=== PATIENT | female | born 1960 | race Caucasian/White ===

== ENCOUNTER 2020-12-09 19:17 | Inpatient (IN) | payer MEDICARE, OTHER ==
[~2020-12-09] VITALS: Ht 167.1 cm; Wt 123.2 kg
[2020-12-09 22:03] VITALS: BP 133/85
[2020-12-09] MEDS ORDERED: PLEASE ENTER HEIGHT AND WEIGHT MC SCH (22:30)
[2020-12-09] MEDS ORDERED: NITROGLYCERIN 0.4 MG BOTTLE (25 TABS) SL PRN (22:30)
[2020-12-09] MEDS ORDERED: PLEASE ENTER ALLERGIES MC SCH (22:30)
[2020-12-09 22:53] LABS: BASOPHILS % (AUTO) 1 % (0-1); EOSINOPHILS % (AUTO) 1 % (1-7); LYMPHOCYTES % (AUTO) 23 % (22-44); MEAN CORPUSCULAR HEMOGLOBIN 28.9 pg (27.0-34.8); MEAN CORPUSCULAR HGB CONC 32.6 g/dL (32.4-35.8); MEAN PLATELET VOLUME 7.6 fL (7.4-10.4); MONOCYTES % (AUTO) 9 % (2-9); NEUTROPHILS % (AUTO) 66 % (42-75); PLATELET COUNT 269 x10^3/uL (130-400); RED BLOOD COUNT 3.27 x10^6/uL (3.82-5.3); RED CELL DISTRIBUTION WIDTH 16.4 % (9.6-15.2)
[2020-12-09 23:06] LABS: ALANINE AMINOTRANSFERASE 20 U/L (12-78); ALBUMIN 3.7 g/dL (3.4-5.0); ANION GAP 7 mmol/L (5-15); CALCIUM 8.1 mg/dL (8.5-10.1); CHLORIDE 96 mmol/L (98-107); CREATININE 0.87 mg/dL (0.55-1.02)
[2020-12-09 23:08] LABS: ALKALINE PHOSPHATASE 97 U/L (45-117); BILIRUBIN,TOTAL 0.6 mg/dL (0.2-1.0); TOTAL PROTEIN 6.6 g/dL (6.4-8.2)
[2020-12-10 00:06] VITALS: BP 125/79
[2020-12-10] MEDS ORDERED: PLEASE ENTER HEIGHT MC SCH (00:42)
[2020-12-10] MEDS ORDERED: TRAZ150T62 PO (01:22)
[2020-12-10] MEDS ORDERED: OXYC5TAB98 PO (01:22)
[2020-12-10] MEDS ORDERED: LOSA50TA14 PO (01:22)
[2020-12-10] MEDS ORDERED: OMEP20CA20 PO (01:22)
[2020-12-10] MEDS ORDERED: AMIT150T PO (01:22)
[2020-12-10] MEDS ORDERED: OXYC30TA3 PO (01:22)
[2020-12-10] MEDS ORDERED: LORazepam 0.5MG TABLET ONE (01:58)
[2020-12-10 02:00] VITALS: BP 124/78
[2020-12-10] MEDS ORDERED: LORazepam 0.5MG TABLET PO ONE (02:00)
[2020-12-10] MEDS: OXYcodone IR 5MG TABLET PO PRN ×6 (02:03→23:29)
[2020-12-10] MEDS: ACETAMINOPHEN 650 MG/20.3 ML UDC PO PRN ×2 (02:33→11:19)
[2020-12-10 06:16] LABS: BASOPHILS % (AUTO) 1 % (0-1); EOSINOPHILS % (AUTO) 1 % (1-7); LYMPHOCYTES % (AUTO) 28 % (22-44); MEAN CORPUSCULAR HEMOGLOBIN 28.6 pg (27.0-34.8); MEAN CORPUSCULAR HGB CONC 32.1 g/dL (32.4-35.8); MEAN PLATELET VOLUME 7.9 fL (7.4-10.4); MONOCYTES % (AUTO) 8 % (2-9); NEUTROPHILS % (AUTO) 63 % (42-75); PLATELET COUNT 260 x10^3/uL (130-400); RED BLOOD COUNT 3.27 x10^6/uL (3.82-5.3); RED CELL DISTRIBUTION WIDTH 16.2 % (9.6-15.2)
[2020-12-10 06:20] LABS: CHLORIDE 99 mmol/L (98-107)
[2020-12-10 06:25] LABS: ANION GAP 6 mmol/L (5-15); CALCIUM 8.5 mg/dL (8.5-10.1)
[2020-12-10 06:39] VITALS: BP 128/78
[2020-12-10] MEDS: ASPIRIN 81 MG TABLET EC PO SCH (06:41)
[2020-12-10 07:07] VITALS: BP 135/81
[2020-12-10] MEDS: LOSARTAN 50MG TABLET PO SCH (08:39)
[2020-12-10] MEDS: OMEPRAZOLE 20 MG CAPSULE.DR PO SCH (08:39)
[2020-12-10] MEDS: FUROSEMIDE 20 MG/2 ML IVPush SCH ×2 (08:39→20:10)
[2020-12-10] MEDS: FAMOTIDINE 20 MG TABLET PO SCH (08:39)
[2020-12-10] MEDS: ENOXAPARIN 40 MG/0.4 ML SQ SCH (08:40)
[2020-12-10] MEDS: FLUTICASONE/VILANTEROL 100-25MCG/INH INH SCH (09:40)
[2020-12-10] MEDS ORDERED: FUROSEMIDE 40 MG/4 ML IV ONE (12:00)
[2020-12-10] MEDS ORDERED: POTASSIUM CHLORIDE 20 MEQ TAB.ER.PRT PO ONE ×2 (12:00→15:30)
[2020-12-10 12:30] VITALS: BP 118/74
[2020-12-10] MEDS: SENNA/DOCUSATE TABLET PO SCH (15:51)
[2020-12-10] MEDS: TRAZODONE 150MG TABLET PO SCH (19:18)
[2020-12-10 19:27] VITALS: BP 113/68
[2020-12-10] MEDS: ALBUTEROL HFA 90 MCG/SPRAY INH PRN (19:41)
[2020-12-10] MEDS: AMITRIPTYLINE 75 MG TABLET PO SCH (20:11)
[2020-12-10] MEDS ORDERED: TRAZODONE 150MG TABLET PO SCH (21:00)
[2020-12-11 01:58] VITALS: BP 124/65
[2020-12-11] MEDS: ALBUTEROL HFA 90 MCG/SPRAY INH PRN ×2 (03:20→18:07)
[2020-12-11] MEDS: ASPIRIN 81 MG TABLET EC PO SCH (04:49)
[2020-12-11] MEDS: OXYcodone IR 5MG TABLET PO PRN ×4 (04:50→20:48)
[2020-12-11 05:10] LABS: BASOPHILS % (AUTO) 1 % (0-1); EOSINOPHILS % (AUTO) 2 % (1-7); LYMPHOCYTES % (AUTO) 16 % (22-44); MEAN CORPUSCULAR HEMOGLOBIN 28.9 pg (27.0-34.8); MEAN CORPUSCULAR HGB CONC 32.6 g/dL (32.4-35.8); MEAN PLATELET VOLUME 8.2 fL (7.4-10.4); MONOCYTES % (AUTO) 10 % (2-9); NEUTROPHILS % (AUTO) 72 % (42-75); PLATELET COUNT 319 x10^3/uL (130-400); RED BLOOD COUNT 3.26 x10^6/uL (3.82-5.3); RED CELL DISTRIBUTION WIDTH 16.1 % (9.6-15.2)
[2020-12-11 05:23] LABS: ANION GAP 4 mmol/L (5-15); CALCIUM 8.3 mg/dL (8.5-10.1); CHLORIDE 96 mmol/L (98-107)
[2020-12-11 05:25] LABS: CREATININE 0.78 mg/dL (0.55-1.02)
[2020-12-11 07:46] VITALS: BP 121/64
[2020-12-11] MEDS: LOSARTAN 50MG TABLET PO SCH ×2 (08:17→08:43)
[2020-12-11] MEDS: SENNA/DOCUSATE TABLET PO SCH (08:43)
[2020-12-11] MEDS: FAMOTIDINE 20 MG TABLET PO SCH ×2 (08:43→20:47)
[2020-12-11] MEDS: FUROSEMIDE 20 MG/2 ML IVPush SCH (08:44)
[2020-12-11] MEDS: OMEPRAZOLE 20 MG CAPSULE.DR PO SCH ×2 (08:44→20:47)
[2020-12-11] MEDS: ENOXAPARIN 40 MG/0.4 ML SQ SCH (08:44)
[2020-12-11] MEDS: FLUTICASONE/VILANTEROL 100-25MCG/INH INH SCH (09:30)
[2020-12-11 14:30] VITALS: BP 100/64
[2020-12-11] MEDS: methylPREDNISolone SOD SUCC 40 MG/ML IV SCH ×2 (15:05→23:39)
[2020-12-11 16:49] VITALS: BP 130/76
[2020-12-11] MEDS: FUROSEMIDE 40 MG/4 ML IVPush SCH (17:11)
[2020-12-11] MEDS ORDERED: LORazepam 0.5MG TABLET ONE (18:03)
[2020-12-11] MEDS: OXYcodone IR 5MG TABLET PO SCH (18:07)
[2020-12-11] MEDS: LORazepam 0.5MG TABLET PO PRN ×2 (18:07→23:45)
[2020-12-11 19:46] VITALS: BP 126/74
[2020-12-11] MEDS: TRAZODONE 150MG TABLET PO SCH (20:46)
[2020-12-11] MEDS: AMITRIPTYLINE 75 MG TABLET PO SCH (20:47)
[2020-12-12] MEDS: OXYcodone IR 5MG TABLET PO PRN ×4 (00:23→22:02)
[2020-12-12 00:27] VITALS: BP 108/68
[2020-12-12] MEDS: OXYcodone IR 5MG TABLET PO SCH ×3 (03:22→18:27)
[2020-12-12 04:48] LABS: BASOPHILS % (AUTO) 0 % (0-1); EOSINOPHILS % (AUTO) 0 % (1-7); LYMPHOCYTES % (AUTO) 7 % (22-44); MEAN CORPUSCULAR HEMOGLOBIN 28.7 pg (27.0-34.8); MEAN CORPUSCULAR HGB CONC 32.4 g/dL (32.4-35.8); MEAN PLATELET VOLUME 7.9 fL (7.4-10.4); MONOCYTES % (AUTO) 2 % (2-9); NEUTROPHILS % (AUTO) 91 % (42-75); PLATELET COUNT 253 x10^3/uL (130-400); RED BLOOD COUNT 3.13 x10^6/uL (3.82-5.3); RED CELL DISTRIBUTION WIDTH 16.6 % (9.6-15.2)
[2020-12-12 04:52] LABS: ANION GAP 3 mmol/L (5-15); CALCIUM 8.4 mg/dL (8.5-10.1); CHLORIDE 95 mmol/L (98-107)
[2020-12-12 04:53] LABS: CREATININE 0.65 mg/dL (0.55-1.02)
[2020-12-12] MEDS: ASPIRIN 81 MG TABLET EC PO SCH (06:03)
[2020-12-12] MEDS: methylPREDNISolone SOD SUCC 40 MG/ML IV SCH ×3 (06:03→23:59)
[2020-12-12 06:56] VITALS: BP 133/82
[2020-12-12] MEDS: FLUTICASONE/VILANTEROL 100-25MCG/INH INH SCH (08:06)
[2020-12-12] MEDS: LOSARTAN 50MG TABLET PO SCH ×2 (09:00→09:45)
[2020-12-12] MEDS: SENNA/DOCUSATE TABLET PO SCH (09:44)
[2020-12-12] MEDS: OMEPRAZOLE 20 MG CAPSULE.DR PO SCH ×2 (09:45→21:59)
[2020-12-12] MEDS: FAMOTIDINE 20 MG TABLET PO SCH ×2 (09:45→22:00)
[2020-12-12] MEDS: ENOXAPARIN 40 MG/0.4 ML SQ SCH (09:46)
[2020-12-12] MEDS: FUROSEMIDE 40 MG/4 ML IVPush SCH ×2 (09:46→17:17)
[2020-12-12 12:21] VITALS: BP 151/84
[2020-12-12] MEDS: ALBUTEROL HFA 90 MCG/SPRAY INH PRN (15:37)
[2020-12-12] MEDS ORDERED: OMNIPAQUE 350 MG/ML, 100ML BOTTLE ONE (16:31)
[2020-12-12 18:56] VITALS: BP 142/97
[2020-12-12] MEDS: ENOXAPARIN 30 MG/0.3 ML SQ SCH (22:01)
[2020-12-12] MEDS: AMITRIPTYLINE 75 MG TABLET PO SCH (22:02)
[2020-12-12] MEDS: TRAZODONE 150MG TABLET PO SCH (22:03)
[2020-12-12] MEDS: LORazepam 0.5MG TABLET PO PRN (22:04)
[2020-12-13 00:43] VITALS: BP 137/83
[2020-12-13] MEDS: OXYcodone IR 5MG TABLET PO SCH ×3 (04:16→18:01)
[2020-12-13 05:06] LABS: BASOPHILS % (AUTO) 0 % (0-1); EOSINOPHILS % (AUTO) 0 % (1-7); LYMPHOCYTES % (AUTO) 6 % (22-44); MEAN CORPUSCULAR HEMOGLOBIN 28.8 pg (27.0-34.8); MEAN CORPUSCULAR HGB CONC 32.5 g/dL (32.4-35.8); MEAN PLATELET VOLUME 8.2 fL (7.4-10.4); MONOCYTES % (AUTO) 4 % (2-9); NEUTROPHILS % (AUTO) 90 % (42-75); PLATELET COUNT 258 x10^3/uL (130-400); RED BLOOD COUNT 3.18 x10^6/uL (3.82-5.3); RED CELL DISTRIBUTION WIDTH 16.5 % (9.6-15.2)
[2020-12-13 05:22] LABS: ANION GAP 5 mmol/L (5-15); CALCIUM 8.9 mg/dL (8.5-10.1); CHLORIDE 94 mmol/L (98-107)
[2020-12-13 05:24] LABS: CREATININE 0.72 mg/dL (0.55-1.02)
[2020-12-13 07:11] VITALS: BP 150/84
[2020-12-13] MEDS: LOSARTAN 50MG TABLET PO SCH ×2 (08:09→08:44)
[2020-12-13] MEDS: methylPREDNISolone SOD SUCC 40 MG/ML IV SCH (08:43)
[2020-12-13] MEDS: SENNA/DOCUSATE TABLET PO SCH (08:43)
[2020-12-13] MEDS: FUROSEMIDE 40 MG/4 ML IVPush SCH (08:43)
[2020-12-13] MEDS: ASPIRIN 81 MG TABLET EC PO SCH (08:44)
[2020-12-13] MEDS: ENOXAPARIN 30 MG/0.3 ML SQ SCH ×2 (08:44→20:52)
[2020-12-13] MEDS: OMEPRAZOLE 20 MG CAPSULE.DR PO SCH ×2 (08:44→20:52)
[2020-12-13] MEDS: FAMOTIDINE 20 MG TABLET PO SCH ×2 (08:44→20:52)
[2020-12-13] MEDS: FLUTICASONE/VILANTEROL 100-25MCG/INH INH SCH (10:05)
[2020-12-13 12:25] VITALS: BP 144/83
[2020-12-13] MEDS: ONDANSETRON 2MG/ML, 2ML IV PRN ×2 (13:31→21:10)
[2020-12-13] MEDS: OXYcodone IR 5MG TABLET PO PRN ×2 (13:31→22:07)
[2020-12-13] MEDS ORDERED: POTASSIUM PHOSPHATE 22 MEQ in SODIUM CHLORIDE 0.9% 500 ML IV ONE (16:00)
[2020-12-13] MEDS: LORazepam 0.5MG TABLET PO PRN ×2 (18:00→22:07)
[2020-12-13] MEDS: AMITRIPTYLINE 75 MG TABLET PO SCH (20:52)
[2020-12-13] MEDS: TRAZODONE 150MG TABLET PO SCH (20:52)
[2020-12-13 21:06] VITALS: BP 150/77
[2020-12-14 00:50] VITALS: BP 144/76
[2020-12-14] MEDS: OXYcodone IR 5MG TABLET PO SCH ×3 (02:28→18:27)
[2020-12-14] MEDS: ACETAMINOPHEN 650 MG/20.3 ML UDC PO PRN (05:24)
[2020-12-14] MEDS: ASPIRIN 81 MG TABLET EC PO SCH (05:24)
[2020-12-14 05:31] LABS: BASOPHILS % (AUTO) 0 % (0-1); EOSINOPHILS % (AUTO) 0 % (1-7); LYMPHOCYTES % (AUTO) 24 % (22-44); MEAN CORPUSCULAR HEMOGLOBIN 28.6 pg (27.0-34.8); MEAN CORPUSCULAR HGB CONC 32.1 g/dL (32.4-35.8); MEAN PLATELET VOLUME 8.2 fL (7.4-10.4); MONOCYTES % (AUTO) 10 % (2-9); NEUTROPHILS % (AUTO) 65 % (42-75); PLATELET COUNT 263 x10^3/uL (130-400); RED BLOOD COUNT 3.23 x10^6/uL (3.82-5.3); RED CELL DISTRIBUTION WIDTH 16.4 % (9.6-15.2)
[2020-12-14 05:39] LABS: ANION GAP 3 mmol/L (5-15); CALCIUM 8.5 mg/dL (8.5-10.1); CHLORIDE 96 mmol/L (98-107); CREATININE 0.64 mg/dL (0.55-1.02)
[2020-12-14] MEDS: SENNA/DOCUSATE TABLET PO SCH (08:22)
[2020-12-14] MEDS: FAMOTIDINE 20 MG TABLET PO SCH ×2 (08:22→19:54)
[2020-12-14] MEDS: ENOXAPARIN 30 MG/0.3 ML SQ SCH ×2 (08:22→19:54)
[2020-12-14] MEDS: methylPREDNISolone SOD SUCC 40 MG/ML IV SCH (08:22)
[2020-12-14] MEDS: OMEPRAZOLE 20 MG CAPSULE.DR PO SCH ×2 (08:22→19:54)
[2020-12-14] MEDS: LOSARTAN 50MG TABLET PO SCH (08:22)
[2020-12-14 08:23] VITALS: BP 126/73
[2020-12-14] MEDS: OXYcodone IR 5MG TABLET PO PRN ×2 (08:23→15:38)
[2020-12-14] MEDS: FLUTICASONE/VILANTEROL 100-25MCG/INH INH SCH (09:50)
[2020-12-14] MEDS ORDERED: FUROSEMIDE 40 MG/4 ML IVPush SCH (12:00)
[2020-12-14 12:56] VITALS: BP 107/70
[2020-12-14 19:20] VITALS: BP 112/67
[2020-12-14] MEDS: AMITRIPTYLINE 75 MG TABLET PO SCH (19:54)
[2020-12-14] MEDS: LORazepam 0.5MG TABLET PO PRN (20:01)
[2020-12-14] MEDS: TRAZODONE 150MG TABLET PO SCH (21:00)
[2020-12-15] MEDS: OXYcodone IR 5MG TABLET PO PRN ×4 (00:23→23:10)
[2020-12-15 02:00] VITALS: BP 119/74
[2020-12-15] MEDS: OXYcodone IR 5MG TABLET PO SCH ×3 (03:57→20:52)
[2020-12-15] MEDS: ASPIRIN 81 MG TABLET EC PO SCH (03:57)
[2020-12-15 05:35] LABS: BASOPHILS % (AUTO) 0 % (0-1); EOSINOPHILS % (AUTO) 0 % (1-7); LYMPHOCYTES % (AUTO) 30 % (22-44); MEAN CORPUSCULAR HEMOGLOBIN 28.9 pg (27.0-34.8); MEAN CORPUSCULAR HGB CONC 32.4 g/dL (32.4-35.8); MEAN PLATELET VOLUME 8.2 fL (7.4-10.4); MONOCYTES % (AUTO) 9 % (2-9); NEUTROPHILS % (AUTO) 60 % (42-75); PLATELET COUNT 244 x10^3/uL (130-400); RED BLOOD COUNT 3.13 x10^6/uL (3.82-5.3); RED CELL DISTRIBUTION WIDTH 16.3 % (9.6-15.2)
[2020-12-15 05:40] LABS: ANION GAP 3 mmol/L (5-15); CALCIUM 8.5 mg/dL (8.5-10.1); CHLORIDE 96 mmol/L (98-107); CREATININE 0.65 mg/dL (0.55-1.02)
[2020-12-15 06:20] VITALS: BP 125/81
[2020-12-15] MEDS: OMEPRAZOLE 20 MG CAPSULE.DR PO SCH ×2 (08:08→20:51)
[2020-12-15] MEDS: LOSARTAN 50MG TABLET PO SCH (08:08)
[2020-12-15] MEDS: methylPREDNISolone SOD SUCC 40 MG/ML IV SCH (08:08)
[2020-12-15] MEDS: SENNA/DOCUSATE TABLET PO SCH (08:08)
[2020-12-15] MEDS: FAMOTIDINE 20 MG TABLET PO SCH ×2 (08:08→20:51)
[2020-12-15] MEDS: ENOXAPARIN 30 MG/0.3 ML SQ SCH ×3 (08:09→20:55)
[2020-12-15] MEDS: FLUTICASONE/VILANTEROL 100-25MCG/INH INH SCH (10:10)
[2020-12-15 12:00] VITALS: BP 143/85
[2020-12-15] MEDS: LORazepam 0.5MG TABLET PO PRN ×2 (12:22→21:07)
[2020-12-15] MEDS: ONDANSETRON 2MG/ML, 2ML IV PRN ×2 (16:35→21:07)
[2020-12-15 18:49] VITALS: BP 153/70
[2020-12-16] MEDS: TRAZODONE 150MG TABLET PO SCH ×2 (00:01→23:50)
[2020-12-16] MEDS: AMITRIPTYLINE 75 MG TABLET PO SCH ×2 (00:02→23:50)
[2020-12-16 00:09] VITALS: BP 131/81
[2020-12-16] MEDS: ASPIRIN 81 MG TABLET EC PO SCH (05:01)
[2020-12-16] MEDS: OXYcodone IR 5MG TABLET PO SCH ×3 (05:03→21:59)
[2020-12-16 05:19] LABS: MEAN CORPUSCULAR HEMOGLOBIN 28.9 pg (27.0-34.8); MEAN CORPUSCULAR HGB CONC 32.1 g/dL (32.4-35.8); MEAN PLATELET VOLUME 8.3 fL (7.4-10.4); PLATELET COUNT 246 x10^3/uL (130-400); RED BLOOD COUNT 3.06 x10^6/uL (3.82-5.3); RED CELL DISTRIBUTION WIDTH 16.3 % (9.6-15.2)
[2020-12-16 05:32] LABS: CHLORIDE 97 mmol/L (98-107)
[2020-12-16 05:37] LABS: ANION GAP 5 mmol/L (5-15); CALCIUM 8.6 mg/dL (8.5-10.1); CREATININE 0.63 mg/dL (0.55-1.02)
[2020-12-16 06:21] LABS: EOS#(MANUAL) 0.09 x10^3/uL (0.0-0.4); EOS% (MANUAL) 1 % (1-7); LYMPH#(MANUAL) 2.82 x10^3/uL (1-3.4); LYMPHS% (MANUAL) 32 % (22-44); METAMYELOCYTES# (MANUAL) 0.26 x10^3/uL (0-0); METAMYELOCYTES% (MANUAL) 3 % (0-1); MONOS#(MANUAL) 0.18 x10^3/uL (0.3-2.7); MONOS% (MANUAL) 2 % (2-9); MYELOCYTES# (MANUAL) 0.09 x10^3/uL (0-0); MYELOCYTES% (MANUAL) 1 % (0-0); REACTIVE LYMPHS # (MANUAL) 0.09 x10^3/uL (0-0); REACTIVE LYMPHS % (MANUAL) 1 % (0-0); SEG#(MANUAL) 5.19 x10^3/uL (1.8-6.8); SEGS% (MANUAL) 59 % (42-75)
[2020-12-16 06:22] LABS: OTHER CELLS # (MANUAL) 0.09 x10^3/uL (0-0)
[2020-12-16 06:24] LABS: OTHER CELLS % (MANUAL) 1 % (0-0)
[2020-12-16 06:25] LABS: POLYCHROMASIA 1+
[2020-12-16 06:26] LABS: <PLATELET ESTIMATE> ADEQUATE; LARGE PLATELETS 1+
[2020-12-16 06:30] VITALS: BP 117/76
[2020-12-16] MEDS: FLUTICASONE/VILANTEROL 100-25MCG/INH INH SCH (08:23)
[2020-12-16] MEDS: ENOXAPARIN 30 MG/0.3 ML SQ SCH ×2 (09:00→21:00)
[2020-12-16] MEDS: methylPREDNISolone SOD SUCC 40 MG/ML IV SCH (09:00)
[2020-12-16] MEDS: SENNA/DOCUSATE TABLET PO SCH (09:01)
[2020-12-16] MEDS: OMEPRAZOLE 20 MG CAPSULE.DR PO SCH ×2 (09:01→21:59)
[2020-12-16] MEDS: FAMOTIDINE 20 MG TABLET PO SCH ×2 (09:01→21:59)
[2020-12-16] MEDS: LOSARTAN 50MG TABLET PO SCH (09:01)
[2020-12-16] MEDS: OXYcodone IR 5MG TABLET PO PRN ×2 (09:16→19:20)
[2020-12-16 12:03] VITALS: BP 128/84
[2020-12-16] MEDS: LORazepam 0.5MG TABLET PO PRN ×2 (15:54→22:00)
[2020-12-16 19:54] VITALS: BP 121/81
[2020-12-16] MEDS: ONDANSETRON 2MG/ML, 2ML IV PRN (20:23)
[2020-12-17] VITALS (8 sets, daily range): BP systolic 109–153; BP diastolic 68–88
[2020-12-17] MEDS: ACETAMINOPHEN 650 MG/20.3 ML UDC PO PRN (01:03)
[2020-12-17] MEDS: OXYcodone IR 5MG TABLET PO PRN ×2 (02:14→18:00)
[2020-12-17 04:56] LABS: MEAN CORPUSCULAR HEMOGLOBIN 28.5 pg (27.0-34.8); MEAN CORPUSCULAR HGB CONC 31.7 g/dL (32.4-35.8); MEAN PLATELET VOLUME 8.2 fL (7.4-10.4); PLATELET COUNT 248 x10^3/uL (130-400); RED BLOOD COUNT 2.92 x10^6/uL (3.82-5.3); RED CELL DISTRIBUTION WIDTH 16.3 % (9.6-15.2)
[2020-12-17 05:10] LABS: CHLORIDE 99 mmol/L (98-107)
[2020-12-17 05:23] LABS: % IRON SATURATION 7 % (20-55); ANION GAP 2 mmol/L (5-15); CALCIUM 8.6 mg/dL (8.5-10.1); CREATININE 0.62 mg/dL (0.55-1.02); IRON LEVEL 28 mcg/dL (50-170); TOTAL IRON BINDING CAPACITY 392 mcg/dL (250-450)
[2020-12-17 05:48] LABS: <PLATELET ESTIMATE> ADEQUATE; <PLT MORPHOLOGY> NORMAL PLT MORPH; LYMPH#(MANUAL) 2.55 x10^3/uL (1-3.4); LYMPHS% (MANUAL) 23 % (22-44); MONOS#(MANUAL) 0.56 x10^3/uL (0.3-2.7); MONOS% (MANUAL) 5 % (2-9); MYELOCYTES# (MANUAL) 0.33 x10^3/uL (0-0); MYELOCYTES% (MANUAL) 3 % (0-0); POLYCHROMASIA 1+; SEG#(MANUAL) 7.66 x10^3/uL (1.8-6.8); SEGS% (MANUAL) 69 % (42-75)
[2020-12-17] MEDS: OXYcodone IR 5MG TABLET PO SCH ×3 (05:57→22:46)
[2020-12-17] MEDS: FLUTICASONE/VILANTEROL 100-25MCG/INH INH SCH (07:00)
[2020-12-17] MEDS ORDERED: SODIUM CHLORIDE 0.9% 1,000 ML IV SCH (07:00)
[2020-12-17] MEDS: SPIRONOLACTONE 25 MG TABLET PO SCH ×2 (08:11→14:15)
[2020-12-17] MEDS: ASPIRIN 81 MG TABLET EC PO SCH ×2 (08:12→14:44)
[2020-12-17] MEDS: LOSARTAN 50MG TABLET PO SCH ×2 (08:12→14:45)
[2020-12-17] MEDS: FUROSEMIDE 40 MG TABLET PO SCH ×2 (08:12→14:17)
[2020-12-17] MEDS: FAMOTIDINE 20 MG TABLET PO SCH ×2 (08:32→22:47)
[2020-12-17] MEDS: OMEPRAZOLE 20 MG CAPSULE.DR PO SCH ×2 (08:34→22:47)
[2020-12-17] MEDS: ENOXAPARIN 30 MG/0.3 ML SQ SCH (08:34)
[2020-12-17] MEDS: SENNA/DOCUSATE TABLET PO SCH ×2 (08:34→14:14)
[2020-12-17] MEDS ORDERED: MIDAZOLAM 1 MG/ML, 5ML ONE (12:15)
[2020-12-17] MEDS: ONDANSETRON 2MG/ML, 2ML IV PRN ×2 (14:44→22:43)
[2020-12-18] VITALS (7 sets, daily range): BP systolic 103–153; BP diastolic 64–90
[2020-12-18] MEDS: TRAZODONE 150MG TABLET PO SCH ×2 (00:29→23:57)
[2020-12-18] MEDS: ENOXAPARIN 30 MG/0.3 ML SQ SCH ×3 (00:30→21:00)
[2020-12-18] MEDS: AMITRIPTYLINE 75 MG TABLET PO SCH ×2 (00:30→23:57)
[2020-12-18] MEDS: OXYcodone IR 5MG TABLET PO PRN ×3 (04:49→18:33)
[2020-12-18 05:25] LABS: MEAN CORPUSCULAR HEMOGLOBIN 28.8 pg (27.0-34.8); MEAN CORPUSCULAR HGB CONC 31.8 g/dL (32.4-35.8); MEAN PLATELET VOLUME 8.2 fL (7.4-10.4); PLATELET COUNT 297 x10^3/uL (130-400); RED BLOOD COUNT 3.19 x10^6/uL (3.82-5.3); RED CELL DISTRIBUTION WIDTH 16.3 % (9.6-15.2)
[2020-12-18 05:38] LABS: ANION GAP 3 mmol/L (5-15); CALCIUM 8.6 mg/dL (8.5-10.1); CHLORIDE 98 mmol/L (98-107); CREATININE 0.71 mg/dL (0.55-1.02)
[2020-12-18 05:54] LABS: <PLATELET ESTIMATE> ADEQUATE; <PLT MORPHOLOGY> NORMAL PLT MORPH; ANISOCYTOSIS 1+; EOS% (MANUAL) 1 % (1-7); LYMPH#(MANUAL) 3.23 x10^3/uL (1-3.4); LYMPHS% (MANUAL) 33 % (22-44); METAMYELOCYTES% (MANUAL) 1 % (0-1); MONOS#(MANUAL) 0.49 x10^3/uL (0.3-2.7); MONOS% (MANUAL) 5 % (2-9); POLYCHROMASIA 1+; SEG#(MANUAL) 5.88 x10^3/uL (1.8-6.8); SEGS% (MANUAL) 60 % (42-75)
[2020-12-18] MEDS: OXYcodone IR 5MG TABLET PO SCH ×3 (08:02→23:56)
[2020-12-18] MEDS: ASPIRIN 81 MG TABLET EC PO SCH (08:03)
[2020-12-18] MEDS: FLUTICASONE/VILANTEROL 100-25MCG/INH INH SCH (08:25)
[2020-12-18] MEDS ORDERED: ALBUTEROL SULFATE 2.5 MG/3 ML NPPB PRN (09:00)
[2020-12-18] MEDS ORDERED: MAGNESIUM HYDROXIDE 8%, 30ML UDC PO ONE (09:30)
[2020-12-18] MEDS: FAMOTIDINE 20 MG TABLET PO SCH ×2 (10:27→21:45)
[2020-12-18] MEDS: FUROSEMIDE 40 MG TABLET PO SCH (10:27)
[2020-12-18] MEDS: SENNA/DOCUSATE TABLET PO SCH (10:28)
[2020-12-18] MEDS: OMEPRAZOLE 20 MG CAPSULE.DR PO SCH ×2 (10:28→21:45)
[2020-12-18] MEDS: SPIRONOLACTONE 25 MG TABLET PO SCH (10:28)
[2020-12-18] MEDS: LOSARTAN 50MG TABLET PO SCH (10:28)
[2020-12-18] MEDS: LORazepam 0.5MG TABLET PO PRN (13:17)
[2020-12-18] MEDS ORDERED: FUROSEMIDE 20 MG/2 ML IV ONE (15:30)
[2020-12-18 19:13] LABS: OCCULT BLOOD NEGATIVE (NEGATIVE)
[2020-12-19 00:01] VITALS: BP 124/71
[2020-12-19 02:07] VITALS: BP 105/68
[2020-12-19] MEDS: LORazepam 0.5MG TABLET PO PRN ×2 (02:10→12:29)
[2020-12-19 05:01] LABS: ANION GAP 2 mmol/L (5-15); CALCIUM 8.8 mg/dL (8.5-10.1); CHLORIDE 96 mmol/L (98-107); CREATININE 0.64 mg/dL (0.55-1.02)
[2020-12-19 05:02] LABS: BASOPHILS % (AUTO) 1 % (0-1); EOSINOPHILS % (AUTO) 1 % (1-7); LYMPHOCYTES % (AUTO) 27 % (22-44); MEAN CORPUSCULAR HEMOGLOBIN 29.1 pg (27.0-34.8); MEAN CORPUSCULAR HGB CONC 32.8 g/dL (32.4-35.8); MEAN PLATELET VOLUME 7.9 fL (7.4-10.4); MONOCYTES % (AUTO) 10 % (2-9); NEUTROPHILS % (AUTO) 62 % (42-75); PLATELET COUNT 257 x10^3/uL (130-400); RED BLOOD COUNT 3.03 x10^6/uL (3.82-5.3); RED CELL DISTRIBUTION WIDTH 15.9 % (9.6-15.2)
[2020-12-19 05:55] VITALS: BP 123/78
[2020-12-19] MEDS: ASPIRIN 81 MG TABLET EC PO SCH (05:58)
[2020-12-19] MEDS: OXYcodone IR 5MG TABLET PO PRN ×4 (06:06→22:04)
[2020-12-19 07:03] VITALS: BP 115/77
[2020-12-19] MEDS: FLUTICASONE/VILANTEROL 100-25MCG/INH INH SCH (07:40)
[2020-12-19] MEDS: FAMOTIDINE 20 MG TABLET PO SCH ×2 (08:49→20:56)
[2020-12-19] MEDS: SENNA/DOCUSATE TABLET PO SCH (08:49)
[2020-12-19] MEDS: OXYcodone IR 5MG TABLET PO SCH ×2 (08:49→15:59)
[2020-12-19] MEDS: SPIRONOLACTONE 25 MG TABLET PO SCH (08:49)
[2020-12-19] MEDS: OMEPRAZOLE 20 MG CAPSULE.DR PO SCH ×2 (08:49→20:56)
[2020-12-19] MEDS: FUROSEMIDE 40 MG TABLET PO SCH (08:50)
[2020-12-19] MEDS: ENOXAPARIN 30 MG/0.3 ML SQ SCH ×2 (08:50→20:56)
[2020-12-19] MEDS: POLYETHYLENE GLYCOL 17 GM PACKET PO SCH (08:53)
[2020-12-19] MEDS: ONDANSETRON 2MG/ML, 2ML IV PRN (09:21)
[2020-12-19 12:51] VITALS: BP 116/79
[2020-12-19] MEDS: FUROSEMIDE 40 MG/4 ML IV SCH (17:42)
[2020-12-19] MEDS: POTASSIUM CHLORIDE 20 MEQ TAB.ER.PRT PO SCH (17:43)
[2020-12-19 19:06] VITALS: BP 110/74
[2020-12-19] MEDS: TRAZODONE 150MG TABLET PO SCH (20:56)
[2020-12-19] MEDS: AMITRIPTYLINE 75 MG TABLET PO SCH (20:56)
[2020-12-19] MEDS ORDERED: FUROSEMIDE 40 MG TABLET PO SCH (21:00)
[2020-12-20] MEDS: OXYcodone IR 5MG TABLET PO SCH ×4 (00:19→23:45)
[2020-12-20 00:42] VITALS: BP 123/82
[2020-12-20] MEDS: OXYcodone IR 5MG TABLET PO PRN ×3 (04:11→20:22)
[2020-12-20] MEDS: ASPIRIN 81 MG TABLET EC PO SCH (05:34)
[2020-12-20 06:03] LABS: CHLORIDE 96 mmol/L (98-107)
[2020-12-20 06:15] LABS: ALANINE AMINOTRANSFERASE 21 U/L (12-78); ALBUMIN 3.6 g/dL (3.4-5.0); ALKALINE PHOSPHATASE 88 U/L (45-117); ANION GAP 3 mmol/L (5-15); BILIRUBIN,TOTAL 0.3 mg/dL (0.2-1.0); CALCIUM 8.6 mg/dL (8.5-10.1); CREATININE 0.78 mg/dL (0.55-1.02); TOTAL PROTEIN 6.4 g/dL (6.4-8.2)
[2020-12-20 07:11] VITALS: BP 127/85
[2020-12-20] MEDS ORDERED: METOLAZONE 2.5 MG TABLET PO SCH (07:30)
[2020-12-20] MEDS: FLUTICASONE/VILANTEROL 100-25MCG/INH INH SCH (07:45)
[2020-12-20] MEDS: POTASSIUM CHLORIDE 20 MEQ TAB.ER.PRT PO SCH (08:22)
[2020-12-20] MEDS: ENOXAPARIN 30 MG/0.3 ML SQ SCH ×2 (09:00→20:22)
[2020-12-20] MEDS: FUROSEMIDE 40 MG/4 ML IV SCH ×2 (09:43→16:09)
[2020-12-20] MEDS: SENNA/DOCUSATE TABLET PO SCH (09:43)
[2020-12-20] MEDS: FAMOTIDINE 20 MG TABLET PO SCH ×2 (09:43→20:21)
[2020-12-20] MEDS: OMEPRAZOLE 20 MG CAPSULE.DR PO SCH ×2 (09:43→20:21)
[2020-12-20] MEDS: POLYETHYLENE GLYCOL 17 GM PACKET PO SCH (09:43)
[2020-12-20] MEDS: SPIRONOLACTONE 25 MG TABLET PO SCH (09:44)
[2020-12-20] MEDS: ONDANSETRON 2MG/ML, 2ML IV PRN (09:56)
[2020-12-20 13:01] VITALS: BP 123/77
[2020-12-20] MEDS: LORazepam 0.5MG TABLET PO PRN (14:19)
[2020-12-20 19:33] VITALS: BP 117/74
[2020-12-20] MEDS: TRAZODONE 150MG TABLET PO SCH (20:21)
[2020-12-20] MEDS: AMITRIPTYLINE 75 MG TABLET PO SCH (20:22)
[2020-12-21 01:56] VITALS: BP 117/73
[2020-12-21] MEDS: OXYcodone IR 5MG TABLET PO PRN ×3 (03:33→20:19)
[2020-12-21] MEDS: ASPIRIN 81 MG TABLET EC PO SCH (05:52)
[2020-12-21] MEDS: METOLAZONE 2.5 MG TABLET PO SCH (05:52)
[2020-12-21] MEDS: FUROSEMIDE 40 MG/4 ML IV SCH ×2 (06:22→16:06)
[2020-12-21 07:02] VITALS: BP 95/57
[2020-12-21] MEDS: POTASSIUM CHLORIDE 20 MEQ TAB.ER.PRT PO SCH (08:02)
[2020-12-21] MEDS: OMEPRAZOLE 20 MG CAPSULE.DR PO SCH ×2 (08:02→20:17)
[2020-12-21] MEDS: FAMOTIDINE 20 MG TABLET PO SCH ×2 (08:02→20:17)
[2020-12-21] MEDS: OXYcodone IR 5MG TABLET PO SCH ×3 (08:03→23:55)
[2020-12-21] MEDS: SPIRONOLACTONE 25 MG TABLET PO SCH (08:04)
[2020-12-21] MEDS: POLYETHYLENE GLYCOL 17 GM PACKET PO SCH (08:04)
[2020-12-21] MEDS: SENNA/DOCUSATE TABLET PO SCH (08:04)
[2020-12-21] MEDS: ENOXAPARIN 30 MG/0.3 ML SQ SCH ×2 (08:05→20:16)
[2020-12-21] MEDS: FLUTICASONE/VILANTEROL 100-25MCG/INH INH SCH (09:30)
[2020-12-21] MEDS: ONDANSETRON 2MG/ML, 2ML IV PRN ×2 (10:37→22:02)
[2020-12-21 11:34] VITALS: BP 118/77
[2020-12-21 18:31] VITALS: BP 116/76
[2020-12-21] MEDS: MAGNESIUM HYDROXIDE 8%, 30ML UDC PO PRN (22:02)
[2020-12-21] MEDS: AMITRIPTYLINE 75 MG TABLET PO SCH (23:55)
[2020-12-21] MEDS: TRAZODONE 150MG TABLET PO SCH (23:55)
[2020-12-22 02:37] VITALS: BP 114/72
[2020-12-22 03:14] VITALS: BP 111/71
[2020-12-22 05:20] LABS: BASOPHILS % (AUTO) 1 % (0-1); EOSINOPHILS % (AUTO) 2 % (1-7); LYMPHOCYTES % (AUTO) 21 % (22-44); MEAN CORPUSCULAR HEMOGLOBIN 28.7 pg (27.0-34.8); MEAN CORPUSCULAR HGB CONC 32.4 g/dL (32.4-35.8); MEAN PLATELET VOLUME 7.8 fL (7.4-10.4); MONOCYTES % (AUTO) 12 % (2-9); NEUTROPHILS % (AUTO) 64 % (42-75); PLATELET COUNT 248 x10^3/uL (130-400); RED BLOOD COUNT 3.21 x10^6/uL (3.82-5.3); RED CELL DISTRIBUTION WIDTH 15.7 % (9.6-15.2)
[2020-12-22 05:28] LABS: ANION GAP 3 mmol/L (5-15); CALCIUM 8.8 mg/dL (8.5-10.1); CHLORIDE 88 mmol/L (98-107); CREATININE 0.79 mg/dL (0.55-1.02)
[2020-12-22] MEDS: ASPIRIN 81 MG TABLET EC PO SCH (06:07)
[2020-12-22] MEDS: METOLAZONE 2.5 MG TABLET PO SCH (06:07)
[2020-12-22] MEDS: SENNA/DOCUSATE TABLET PO SCH (08:16)
[2020-12-22] MEDS: OMEPRAZOLE 20 MG CAPSULE.DR PO SCH ×2 (08:16→20:49)
[2020-12-22] MEDS: SPIRONOLACTONE 25 MG TABLET PO SCH (08:16)
[2020-12-22] MEDS: OXYcodone IR 5MG TABLET PO SCH ×2 (08:17→16:12)
[2020-12-22] MEDS: FAMOTIDINE 20 MG TABLET PO SCH ×2 (08:17→20:49)
[2020-12-22] MEDS: POLYETHYLENE GLYCOL 17 GM PACKET PO SCH (08:17)
[2020-12-22] MEDS: POTASSIUM CHLORIDE 20 MEQ TAB.ER.PRT PO SCH ×2 (08:17→16:12)
[2020-12-22] MEDS: FUROSEMIDE 40 MG/4 ML IV SCH ×2 (08:18→17:25)
[2020-12-22] MEDS: ENOXAPARIN 30 MG/0.3 ML SQ SCH ×2 (08:18→20:49)
[2020-12-22] MEDS ORDERED: POTASSIUM CHLORIDE 20 MEQ TAB.ER.PRT PO ONE (09:00)
[2020-12-22] MEDS: MAGNESIUM HYDROXIDE 8%, 30ML UDC PO PRN (09:19)
[2020-12-22] MEDS: FLUTICASONE/VILANTEROL 100-25MCG/INH INH SCH (09:35)
[2020-12-22 09:57] VITALS: BP 122/80
[2020-12-22] MEDS: LORazepam 0.5MG TABLET PO PRN (09:58)
[2020-12-22] MEDS: OXYcodone IR 5MG TABLET PO PRN ×2 (11:47→20:49)
[2020-12-22 14:50] VITALS: BP 116/72
[2020-12-22 18:56] VITALS: BP 118/79
[2020-12-22 20:47] VITALS: BP 118/76
[2020-12-22] MEDS: ACETAMINOPHEN 650 MG/20.3 ML UDC PO PRN (20:49)
[2020-12-23] VITALS: BP 126/87
[2020-12-23] MEDS: TRAZODONE 150MG TABLET PO SCH (00:01)
[2020-12-23] MEDS: OXYcodone IR 5MG TABLET PO SCH ×3 (00:01→16:07)
[2020-12-23] MEDS: AMITRIPTYLINE 75 MG TABLET PO SCH (00:02)
[2020-12-23 04:06] VITALS: BP 108/67
[2020-12-23] MEDS: OXYcodone IR 5MG TABLET PO PRN ×2 (04:07→12:50)
[2020-12-23] MEDS: ASPIRIN 81 MG TABLET EC PO SCH (06:26)
[2020-12-23 07:17] VITALS: BP 123/78
[2020-12-23] MEDS: METOLAZONE 2.5 MG TABLET PO SCH (07:31)
[2020-12-23] MEDS: FUROSEMIDE 40 MG/4 ML IV SCH ×2 (08:21→16:07)
[2020-12-23] MEDS: SENNA/DOCUSATE TABLET PO SCH (08:22)
[2020-12-23] MEDS: POTASSIUM CHLORIDE 20 MEQ TAB.ER.PRT PO SCH ×2 (08:22→16:07)
[2020-12-23] MEDS: FAMOTIDINE 20 MG TABLET PO SCH (08:23)
[2020-12-23] MEDS: OMEPRAZOLE 20 MG CAPSULE.DR PO SCH (08:23)
[2020-12-23] MEDS: ENOXAPARIN 30 MG/0.3 ML SQ SCH (08:23)
[2020-12-23] MEDS: POLYETHYLENE GLYCOL 17 GM PACKET PO SCH (08:23)
[2020-12-23] MEDS: SPIRONOLACTONE 25 MG TABLET PO SCH (08:23)
[2020-12-23] MEDS: ACETAMINOPHEN 650 MG/20.3 ML UDC PO PRN (08:29)
[2020-12-23] MEDS: FLUTICASONE/VILANTEROL 100-25MCG/INH INH SCH ×2 (09:00→10:03)
[2020-12-23] MEDS ORDERED: POTASSIUM CHLORIDE 20 MEQ TAB.ER.PRT PO ONE (09:00)
[2020-12-23] MEDS: MAGNESIUM HYDROXIDE 8%, 30ML UDC PO PRN (10:50)
[2020-12-23] MEDS: ONDANSETRON 2MG/ML, 2ML IV PRN (10:50)
[2020-12-23] MEDS: LORazepam 0.5MG TABLET PO PRN (10:50)
[2020-12-23 13:13] VITALS: BP 120/77
[2020-12-23] MEDS ORDERED: ENOX30DI3 SQ (16:24)
[2020-12-23] MEDS ORDERED: ASPI81TA45 PO (16:24)
[2020-12-23] MEDS ORDERED: OMEP-110 PO (16:24)
[2020-12-23] MEDS ORDERED: SPIR25TA PO (16:24)
[2020-12-23] MEDS ORDERED: FAMO20TA7 PO (16:24)
[2020-12-23] MEDS ORDERED: METO2.5T PO (16:24)
[2020-12-23] MEDS ORDERED: OXYC30TA3 PO (16:24)
[2020-12-23] MEDS ORDERED: AMIT75TA PO (16:24)
[2020-12-23] MEDS ORDERED: LORA-445 PO (16:24)
[2020-12-23] MEDS ORDERED: FURO20TA3 PO (16:24)
[2020-12-23] MEDS ORDERED: FLUT1AER INH (16:24)
[2020-12-23] MEDS ORDERED: TRAZ150T62 PO (16:24)
[2020-12-23] MEDS ORDERED: OXYC5TAB98 PO (16:24)
[2020-12-23] MEDS ORDERED: POTA-143 PO (16:24)
[2021-01-11] MEDS ORDERED: ONDA4TAB13 PO ×2 (10:46)
[2021-01-11] MEDS ORDERED: FURO40TA6 PO ×2 (10:46)
[2021-01-11] MEDS ORDERED: FURO20TA3 PO ×2 (10:46)
[2021-02-02] MEDS ORDERED: FERR325T23 PO (02:28)
[2021-02-02] MEDS ORDERED: GABA600T7 PO (02:28)
[2021-02-02] MEDS ORDERED: SPIR25TA5 PO (02:28)
[2021-02-02] MEDS ORDERED: OXYC10TA6 PO (02:28)
[2021-02-02] MEDS ORDERED: ONDA-89 PO (02:28)
[2021-02-02] MEDS ORDERED: ACET500T76 PO (02:28)
[2021-02-02] MEDS ORDERED: POTA10TA6 PO (02:28)
[2021-02-02] MEDS ORDERED: TRAZ150T62 PO (02:28)
[2021-02-02] MEDS ORDERED: BUME2TAB3 PO (02:28)
[2021-02-02] MEDS ORDERED: METO-99 PO (02:28)
[2021-02-02] MEDS ORDERED: AMIO100T4 PO (02:28)
[2021-02-02] MEDS ORDERED: GUAN1TAB PO (02:28)
[2021-02-02] MEDS ORDERED: HYDR-2995 PO (02:28)
[2021-02-02] MEDS ORDERED: PANT40TA6 PO (02:28)
[2021-02-02] MEDS ORDERED: METO5VIA30 IV (02:28)
[2021-02-02] MEDS ORDERED: MAGN400O7 PO (02:28)
[2021-02-02] MEDS ORDERED: OMEP-110 PO (02:28)
[2021-02-02] MEDS ORDERED: AMIT150T PO (02:28)
[2021-02-02] MEDS ORDERED: CHLO50TA PO (02:28)
[2021-02-02] MEDS ORDERED: OXYC15TA3 PO (02:28)
[2021-02-12] MEDS ORDERED: OXYC5TAB98 PO ×2 (10:28)
[2021-02-12] MEDS ORDERED: TRAZ150T62 PO (10:28)
[2021-02-12] MEDS ORDERED: IPRA3AMP30 NPPB (10:28)
[2021-02-12] MEDS ORDERED: SPIR25TA PO (10:28)
[2021-02-12] MEDS ORDERED: DIAZ5TAB4 PO (10:28)
[2021-02-12] MEDS ORDERED: GUAI600T31 PO (10:28)
[2021-02-12] MEDS ORDERED: ALBU18HF HOMEINH (10:28)
[2021-02-12] MEDS ORDERED: FLUT1BLS INH (10:28)
[2021-02-12] MEDS ORDERED: CARV25TA12 PO (10:28)
[2021-02-12] MEDS ORDERED: WARF-36 PO (10:28)
[2021-02-13] MEDS ORDERED: AMIO200T42 PO (08:28)
[2021-02-13] MEDS ORDERED: POTA-143 PO (08:29)
[2021-04-09] MEDS ORDERED: FURO20TA3 PO (12:37)
[2021-04-09] MEDS ORDERED: WARF-36 PO (12:37)
[2021-04-09] MEDS ORDERED: HYDR-826 PO (14:43)
== END 2020-12-23 17:50 | DRG 291 ==
LOC: 4WST 22:09
PROVIDERS: ADMIT Family Medicine; ATTEND Internal Medicine
DX: I11.0 Hypertensive heart disease with heart failure (principal); J96.21 Acute and chronic respiratory failure with hypoxia; I50.21 Acute systolic (congestive) heart failure; Z68.41 Body mass index [BMI] 40.0-44.9, adult; Z20.822 Contact with and (suspected) exposure to COVID-19; J44.9 Chronic obstructive pulmonary disease, unspecified; E66.01 Morbid (severe) obesity due to excess calories; D64.9 Anemia, unspecified; E87.6 Hypokalemia; F41.8 Other specified anxiety disorders; G89.29 Other chronic pain; I08.1 Rheumatic disorders of both mitral and tricuspid valves; I27.20 Pulmonary hypertension, unspecified; I50.23 Acute on chronic systolic (congestive) heart failure; F39 Unspecified mood [affective] disorder; T50.2X5A Adverse effect of carbonic-anhydrase inhibitors, benzothiadiazides and other diuretics, initial encounter; Z96.643 Presence of artificial hip joint, bilateral; Z96.612 Presence of left artificial shoulder joint; Z96.611 Presence of right artificial shoulder joint; Z96.653 Presence of artificial knee joint, bilateral; Z79.899 Other long term (current) drug therapy; Z87.891 Personal history of nicotine dependence; Z95.3 Presence of xenogenic heart valve; Z99.81 Dependence on supplemental oxygen; Z79.891 Long term (current) use of opiate analgesic; Z79.01 Long term (current) use of anticoagulants; Z88.0 Allergy status to penicillin; Z88.1 Allergy status to other antibiotic agents; Z88.8 Allergy status to other drugs, medicaments and biological substances; Z88.5 Allergy status to narcotic agent
CPT/HCPCS: 36415; 71275; 80048; 80053; 82272; 82728; 82962; 83540; 83550; 83735; 84100; 85025; 85379; 87635; 93005; 93306; 93312; 93321; 93325; 94640; G0378; J1650; J1940; J2250; J2405; Q9967; J2920; J7040

== ENCOUNTER 2021-01-04 09:35 | Inpatient (IN) | payer MEDICARE ==
[~2021-01-04] VITALS: Ht 172.7 cm; Wt 121.8 kg
[~2021-01-04 09:35] MED LIST: AMIT150T PO; AMIT75TA PO; ASPI81TA45 PO; ENOX30DI3 SQ; FAMO20TA7 PO; FLUT1AER INH; FURO20TA3 PO; LORA-445 PO; LOSA50TA14 PO; METO2.5T PO; OMEP-110 PO; OMEP20CA20 PO; OXYC30TA3 PO; OXYC5TAB98 PO; POTA20TA6 PO; SPIR25TA PO; TRAZ150T62 PO
--- NOTE | 2021-01-04 09:59 | NUR ---
PT BIB [facility]. PT CO INTERMITTENT CP X1 WEEK. PT STATED THAT SHE HAD A MITRAL VALVE REPLACEMENT AND WAS TOLD THAT SHE NEEDS ANOTHER ONE. PT WAS GIVEN OXYCODONE BY [facility] INSPECTION MACHINE TENDER. GIVEN 324 ASA AND 0.4MG NITRO BY [facility]. PT STATED PAIN IS 7/10. PT CO SOB WITH MOVEMENT, PT ON 3L HOME O2 FOR COPD. PT DENIES FEVER, COUGH, OR N/V/D.
[2021-01-04] MEDS ORDERED: HYDROmorphone 1 MG/ML, 1ML INJ ONE (10:39)
[2021-01-04] MEDS: HYDROmorphone 2 MG/ML, 1ML IVPush PRN (10:41)
[2021-01-04 10:54] LABS: BASOPHILS % (AUTO) 1 % (0-1); EOSINOPHILS % (AUTO) 1 % (1-7); LYMPHOCYTES % (AUTO) 15 % (22-44); MEAN CORPUSCULAR HEMOGLOBIN 28.6 pg (27.0-34.8); MEAN CORPUSCULAR HGB CONC 33.6 g/dL (32.4-35.8); MEAN PLATELET VOLUME 7.5 fL (7.4-10.4); MONOCYTES % (AUTO) 8 % (2-9); NEUTROPHILS % (AUTO) 75 % (42-75); PLATELET COUNT 338 x10^3/uL (130-400); RED BLOOD COUNT 3.16 x10^6/uL (3.82-5.3); RED CELL DISTRIBUTION WIDTH 15.4 % (9.6-15.2)
--- NOTE | 2021-01-04 11:00 | NUR ---
PT RESTING IN [place] COMFORTABLY. CALL LIGHT WITHIN REACH.
[2021-01-04 11:03] LABS: ALANINE AMINOTRANSFERASE 21 U/L (12-78); ALBUMIN 3.6 g/dL (3.4-5.0); ANION GAP 4 mmol/L (5-15); CALCIUM 9.2 mg/dL (8.5-10.1); CHLORIDE 85 mmol/L (98-107); CREATININE 0.61 mg/dL (0.55-1.02)
[2021-01-04 11:07] LABS: ALKALINE PHOSPHATASE 104 U/L (45-117); BILIRUBIN,TOTAL 0.4 mg/dL (0.2-1.0); TROPONIN I < 0.015 ng/mL (0.000-0.045)
[2021-01-04 11:12] LABS: MD NO
[2021-01-04] MEDS ORDERED: MAALOX/HYOSCYAMINE/LIDOCAINE 45 ML BTL ONE (11:38)
[2021-01-04] MEDS ORDERED: MAALOX/HYOSCYAMINE/LIDOCAINE 45 ML BTL PO ONE (12:00)
--- NOTE | 2021-01-04 12:00 | NUR ---
PT RESTING COMFORTABLY. CALL LIGHT WITHIN REACH.
[2021-01-04] MEDS ORDERED: POTASSIUM CHLORIDE 20 MEQ TAB.ER.PRT ONE (12:27)
[2021-01-04] MEDS ORDERED: ACETAMINOPHEN 325 MG TABLET ONE (12:28)
[2021-01-04] MEDS ORDERED: POTASSIUM CHLORIDE 20 MEQ TAB.ER.PRT PO ONE (12:30)
[2021-01-04] MEDS ORDERED: ACETAMINOPHEN 325 MG TABLET PO ONE (12:30)
[2021-01-04 12:37] LABS: TROPONIN I < 0.015 ng/mL (0.000-0.045)
--- NOTE | 2021-01-04 13:15 | NUR ---
REPORT GIVEN TO TOMAS HERNANDEZ
[2021-01-04] MEDS ORDERED: POLYETHYLENE GLYCOL 17 GM PACKET PO PRN (14:30)
[2021-01-04] MEDS: ENOXAPARIN 40 MG/0.4 ML SQ SCH (14:30)
[2021-01-04 14:32] VITALS: BP 119/75
[2021-01-04] MEDS: OXYcodone IR 5MG TABLET PO PRN ×3 (14:50→23:50)
[2021-01-04] MEDS: ACETAMINOPHEN 325 MG TABLET PO PRN (14:51)
[2021-01-04] MEDS: OXYcodone IR 5MG TABLET PO SCH ×2 (16:00→20:10)
[2021-01-04] MEDS: POTASSIUM CHLORIDE 20 MEQ TAB.ER.PRT PO SCH (17:13)
[2021-01-04] MEDS: FUROSEMIDE 40 MG/4 ML IV SCH (17:13)
[2021-01-04 17:46] LABS: TROPONIN I < 0.015 ng/mL (0.000-0.045)
[2021-01-04] MEDS: ONDANSETRON ODT 4 MG PO PRN (18:50)
[2021-01-04 19:19] VITALS: BP 114/81
[2021-01-04] MEDS: FAMOTIDINE 20 MG TABLET PO SCH (20:10)
[2021-01-04] MEDS: OMEPRAZOLE 20 MG CAPSULE.DR PO SCH (20:10)
[2021-01-04] MEDS: AMITRIPTYLINE 75 MG TABLET PO SCH (20:59)
[2021-01-04] MEDS: TRAZODONE 150MG TABLET PO SCH (20:59)
[2021-01-05 01:56] VITALS: BP 122/74
[2021-01-05] MEDS: HYDROmorphone 2 MG/ML, 1ML IVPush PRN (02:18)
[2021-01-05] MEDS: OXYcodone IR 5MG TABLET PO PRN ×2 (04:31→12:50)
[2021-01-05 05:21] LABS: BASOPHILS % (AUTO) 1 % (0-1); EOSINOPHILS % (AUTO) 1 % (1-7); LYMPHOCYTES % (AUTO) 24 % (22-44); MEAN CORPUSCULAR HEMOGLOBIN 28.5 pg (27.0-34.8); MEAN CORPUSCULAR HGB CONC 33.4 g/dL (32.4-35.8); MEAN PLATELET VOLUME 7.7 fL (7.4-10.4); MONOCYTES % (AUTO) 9 % (2-9); NEUTROPHILS % (AUTO) 65 % (42-75); PLATELET COUNT 338 x10^3/uL (130-400); RED BLOOD COUNT 3.23 x10^6/uL (3.82-5.3); RED CELL DISTRIBUTION WIDTH 15.4 % (9.6-15.2)
[2021-01-05 05:22] LABS: MD NO
[2021-01-05 05:27] LABS: CHLORIDE 89 mmol/L (98-107)
[2021-01-05 05:32] LABS: ANION GAP 3 mmol/L (5-15); CALCIUM 9.6 mg/dL (8.5-10.1); CHOL/HDL RATIO 3.9; CHOLESTEROL, TOTAL 212 mg/dL (140-239); CREATININE 0.74 mg/dL (0.55-1.02); HDL CHOL % 26 % (28-40); HDL CHOLESTEROL (DIRECT) 55 mg/dL (40-60); LDL CHOLESTEROL,CALCULATED 134 mg/dL (54-169); LDL/HDL RATIO 2.4 (0.5-3.0); TRIGLYCERIDES 114 mg/dL (50-200); VLDL CHOLESTEROL 23 mg/dL (0-25)
[2021-01-05] MEDS: ASPIRIN 81 MG TABLET EC PO SCH (05:52)
[2021-01-05] MEDS: METOLAZONE 2.5 MG TABLET PO SCH (05:52)
[2021-01-05 07:54] VITALS: BP 160/94
[2021-01-05] MEDS: FUROSEMIDE 40 MG/4 ML IV SCH ×2 (08:19→18:08)
[2021-01-05] MEDS: SENNA/DOCUSATE TABLET PO SCH (08:20)
[2021-01-05] MEDS: FAMOTIDINE 20 MG TABLET PO SCH ×2 (08:20→20:25)
[2021-01-05] MEDS: POTASSIUM CHLORIDE 20 MEQ TAB.ER.PRT PO SCH ×2 (08:20→18:08)
[2021-01-05] MEDS: OMEPRAZOLE 20 MG CAPSULE.DR PO SCH ×2 (08:20→20:25)
[2021-01-05] MEDS: SPIRONOLACTONE 25 MG TABLET PO SCH (08:20)
[2021-01-05] MEDS: OXYcodone IR 5MG TABLET PO SCH ×3 (08:23→20:26)
[2021-01-05] MEDS: FLUTICASONE/VILANTEROL 100-25MCG/INH INH SCH (09:00)
[2021-01-05 12:35] VITALS: BP 120/75
[2021-01-05] MEDS ORDERED: ALBUTEROL HFA 90 MCG/SPRAY INH PRN (13:00)
[2021-01-05] MEDS: ENOXAPARIN 40 MG/0.4 ML SQ SCH (14:30)
[2021-01-05] MEDS: ONDANSETRON 2MG/ML, 2ML IVPush PRN (18:08)
[2021-01-05 19:37] VITALS: BP 145/79
[2021-01-05] MEDS: ATORVASTATIN 40 MG TABLET PO SCH (20:25)
[2021-01-05] MEDS: AMITRIPTYLINE 75 MG TABLET PO SCH ×2 (20:26→23:59)
[2021-01-05] MEDS: ENOXAPARIN 30 MG/0.3 ML SQ SCH (20:26)
[2021-01-06] MEDS: TRAZODONE 150MG TABLET PO SCH ×2 (00:34→23:57)
[2021-01-06 01:14] VITALS: BP 124/84
[2021-01-06] MEDS: OXYcodone IR 5MG TABLET PO PRN ×4 (01:57→23:57)
[2021-01-06 05:23] VITALS: BP 141/66
[2021-01-06] MEDS: METOLAZONE 2.5 MG TABLET PO SCH (05:28)
[2021-01-06] MEDS: ASPIRIN 81 MG TABLET EC PO SCH (05:28)
[2021-01-06 05:32] LABS: CHLORIDE 89 mmol/L (98-107)
[2021-01-06 05:38] LABS: ANION GAP 3 mmol/L (5-15); CALCIUM 9.2 mg/dL (8.5-10.1)
[2021-01-06] MEDS ORDERED: POTASSIUM CHLORIDE 40 MEQ in SODIUM CHLORIDE 0.9% 500 ML IV ONE (07:30)
[2021-01-06] MEDS ORDERED: ALBUTEROL HFA 90 MCG/SPRAY INH PRN (07:30)
[2021-01-06 07:35] VITALS: BP 132/88
[2021-01-06] MEDS: FAMOTIDINE 20 MG TABLET PO SCH ×2 (08:19→20:11)
[2021-01-06] MEDS: SENNA/DOCUSATE TABLET PO SCH (08:19)
[2021-01-06] MEDS: POTASSIUM CHLORIDE 20 MEQ TAB.ER.PRT PO SCH ×2 (08:19→17:34)
[2021-01-06] MEDS: SPIRONOLACTONE 25 MG TABLET PO SCH (08:19)
[2021-01-06] MEDS: FUROSEMIDE 40 MG/4 ML IV SCH ×2 (08:19→17:34)
[2021-01-06] MEDS: OMEPRAZOLE 20 MG CAPSULE.DR PO SCH ×2 (08:19→20:11)
[2021-01-06] MEDS: OXYcodone IR 5MG TABLET PO SCH ×3 (08:56→20:12)
[2021-01-06] MEDS: ENOXAPARIN 30 MG/0.3 ML SQ SCH ×2 (09:00→20:12)
[2021-01-06] MEDS: FLUTICASONE/VILANTEROL 100-25MCG/INH INH SCH (09:00)
[2021-01-06 12:35] VITALS: BP 121/84
[2021-01-06 18:53] VITALS: BP 132/90
[2021-01-06] MEDS: ATORVASTATIN 40 MG TABLET PO SCH (20:12)
[2021-01-06] MEDS: ONDANSETRON 2MG/ML, 2ML IVPush PRN (20:16)
[2021-01-06] MEDS: AMITRIPTYLINE 75 MG TABLET PO SCH (23:58)
[2021-01-07 01:12] VITALS: BP 131/85
[2021-01-07] MEDS: ASPIRIN 81 MG TABLET EC PO SCH (05:14)
[2021-01-07] MEDS: OXYcodone IR 5MG TABLET PO PRN ×2 (05:15→13:27)
[2021-01-07 05:30] LABS: BASOPHILS % (AUTO) 0 % (0-1); EOSINOPHILS % (AUTO) 1 % (1-7); LYMPHOCYTES % (AUTO) 16 % (22-44); MD NO; MEAN CORPUSCULAR HEMOGLOBIN 28.2 pg (27.0-34.8); MEAN CORPUSCULAR HGB CONC 33.4 g/dL (32.4-35.8); MEAN PLATELET VOLUME 7.6 fL (7.4-10.4); MONOCYTES % (AUTO) 8 % (2-9); NEUTROPHILS % (AUTO) 74 % (42-75); PLATELET COUNT 327 x10^3/uL (130-400); RED BLOOD COUNT 2.98 x10^6/uL (3.82-5.3); RED CELL DISTRIBUTION WIDTH 15.7 % (9.6-15.2)
[2021-01-07 05:39] LABS: ANION GAP 4 mmol/L (5-15); CHLORIDE 90 mmol/L (98-107)
[2021-01-07 05:41] LABS: CREATININE 0.71 mg/dL (0.55-1.02)
[2021-01-07] MEDS ORDERED: POTASSIUM CHLORIDE 40 MEQ in SODIUM CHLORIDE 0.9% 500 ML IV ONE (07:00)
[2021-01-07] MEDS: METOLAZONE 2.5 MG TABLET PO SCH (07:14)
[2021-01-07] MEDS: FLUTICASONE/VILANTEROL 100-25MCG/INH INH SCH (07:26)
[2021-01-07] MEDS: ENOXAPARIN 30 MG/0.3 ML SQ SCH ×2 (07:35→20:16)
[2021-01-07 07:47] VITALS: BP 136/74
[2021-01-07] MEDS: POTASSIUM CHLORIDE 20 MEQ TAB.ER.PRT PO SCH ×4 (07:51→20:15)
[2021-01-07] MEDS: OXYcodone IR 5MG TABLET PO SCH ×3 (07:52→20:16)
[2021-01-07] MEDS: SENNA/DOCUSATE TABLET PO SCH (07:53)
[2021-01-07] MEDS: SPIRONOLACTONE 25 MG TABLET PO SCH (07:53)
[2021-01-07] MEDS: FAMOTIDINE 20 MG TABLET PO SCH ×2 (07:53→20:15)
[2021-01-07] MEDS: OMEPRAZOLE 20 MG CAPSULE.DR PO SCH ×2 (07:53→20:15)
[2021-01-07] MEDS: FUROSEMIDE 40 MG TABLET PO SCH ×2 (07:53→16:51)
[2021-01-07] MEDS: ACETAMINOPHEN 325 MG TABLET PO PRN (10:20)
[2021-01-07 14:30] VITALS: BP 108/73
[2021-01-07] MEDS: ATORVASTATIN 40 MG TABLET PO SCH (20:15)
[2021-01-07 20:20] VITALS: BP 148/79
[2021-01-07] MEDS: LORazepam 0.5MG TABLET PO PRN (20:40)
[2021-01-07] MEDS: AMITRIPTYLINE 75 MG TABLET PO SCH (23:50)
[2021-01-07] MEDS: TRAZODONE 150MG TABLET PO SCH (23:50)
[2021-01-08 01:21] VITALS: BP 121/65
[2021-01-08] MEDS: ASPIRIN 81 MG TABLET EC PO SCH (05:41)
[2021-01-08] MEDS: OXYcodone IR 5MG TABLET PO PRN ×2 (05:42→13:38)
[2021-01-08 05:44] LABS: CHLORIDE 91 mmol/L (98-107)
[2021-01-08 05:49] LABS: ANION GAP 4 mmol/L (5-15); CALCIUM 8.9 mg/dL (8.5-10.1); CREATININE 0.68 mg/dL (0.55-1.02)
[2021-01-08] MEDS: METOLAZONE 2.5 MG TABLET PO SCH (06:20)
[2021-01-08 07:21] VITALS: BP 131/79
[2021-01-08] MEDS ORDERED: ALBUTEROL SULFATE 2.5 MG/3 ML NPPB PRN (07:30)
[2021-01-08] MEDS ORDERED: [UNRECOGNIZED DRUG - OTHER] MC SCH (07:30)
[2021-01-08] MEDS ORDERED: POTASSIUM CHLORIDE 40 MEQ in SODIUM CHLORIDE 0.9% 500 ML IV ONE ×2 (07:30→11:30)
[2021-01-08] MEDS: POTASSIUM CHLORIDE 20 MEQ TAB.ER.PRT PO SCH ×3 (08:31→20:39)
[2021-01-08] MEDS: FUROSEMIDE 40 MG TABLET PO SCH (08:31)
[2021-01-08] MEDS: OXYcodone IR 5MG TABLET PO SCH ×3 (08:33→20:40)
[2021-01-08] MEDS: OMEPRAZOLE 20 MG CAPSULE.DR PO SCH (08:33)
[2021-01-08] MEDS: SPIRONOLACTONE 25 MG TABLET PO SCH (08:33)
[2021-01-08] MEDS: FAMOTIDINE 20 MG TABLET PO SCH (08:33)
[2021-01-08] MEDS: ENOXAPARIN 30 MG/0.3 ML SQ SCH ×2 (08:34→20:38)
[2021-01-08] MEDS: SENNA/DOCUSATE TABLET PO SCH (08:34)
[2021-01-08] MEDS: FLUTICASONE/VILANTEROL 100-25MCG/INH INH SCH (08:40)
[2021-01-08] MEDS: LORazepam 0.5MG TABLET PO PRN ×2 (09:15→20:40)
[2021-01-08 12:45] VITALS: BP 121/75
[2021-01-08] MEDS: FUROSEMIDE 20 MG TABLET PO SCH (16:23)
[2021-01-08 19:30] VITALS: BP 121/78
[2021-01-08] MEDS: ATORVASTATIN 40 MG TABLET PO SCH (20:39)
[2021-01-09] MEDS: AMITRIPTYLINE 75 MG TABLET PO SCH ×2 (00:46→23:45)
[2021-01-09 00:47] VITALS: BP 133/80
[2021-01-09] MEDS: TRAZODONE 150MG TABLET PO SCH ×2 (00:47→23:45)
[2021-01-09] MEDS: ACETAMINOPHEN 325 MG TABLET PO PRN ×3 (00:50→21:19)
[2021-01-09] MEDS: OXYcodone IR 5MG TABLET PO PRN ×3 (04:27→23:48)
[2021-01-09 05:21] LABS: CHLORIDE 94 mmol/L (98-107)
[2021-01-09 05:31] LABS: ALANINE AMINOTRANSFERASE 16 U/L (12-78); ALBUMIN 3.4 g/dL (3.4-5.0); ALKALINE PHOSPHATASE 84 U/L (45-117); ANION GAP 5 mmol/L (5-15); BILIRUBIN,TOTAL 0.4 mg/dL (0.2-1.0); CALCIUM 9.1 mg/dL (8.5-10.1); TOTAL PROTEIN 6.3 g/dL (6.4-8.2)
[2021-01-09] MEDS: ASPIRIN 81 MG TABLET EC PO SCH (05:33)
[2021-01-09 07:47] VITALS: BP 103/63
[2021-01-09] MEDS ORDERED: FUROSEMIDE 40 MG TABLET PO SCH (08:00)
[2021-01-09] MEDS: OXYcodone IR 5MG TABLET PO SCH ×3 (08:23→21:18)
[2021-01-09] MEDS: OMEPRAZOLE 20 MG CAPSULE.DR PO SCH (08:24)
[2021-01-09] MEDS: SPIRONOLACTONE 25 MG TABLET PO SCH (08:24)
[2021-01-09] MEDS: POTASSIUM CHLORIDE 20 MEQ TAB.ER.PRT PO SCH ×3 (08:24→21:24)
[2021-01-09] MEDS: FUROSEMIDE 20 MG TABLET PO SCH (08:24)
[2021-01-09] MEDS: SENNA/DOCUSATE TABLET PO SCH (08:25)
[2021-01-09] MEDS: ENOXAPARIN 30 MG/0.3 ML SQ SCH ×2 (08:25→21:00)
[2021-01-09] MEDS: FLUTICASONE/VILANTEROL 100-25MCG/INH INH SCH (09:17)
[2021-01-09 13:07] VITALS: BP 132/61
[2021-01-09] MEDS: LORazepam 0.5MG TABLET PO PRN ×2 (13:55→21:19)
[2021-01-09] MEDS ORDERED: FUROSEMIDE 20 MG TABLET PO SCH (15:00)
[2021-01-09 19:10] VITALS: BP 109/74
[2021-01-09] MEDS: ATORVASTATIN 40 MG TABLET PO SCH (21:00)
[2021-01-09] MEDS: ONDANSETRON 2MG/ML, 2ML IVPush PRN (21:19)
[2021-01-10 02:38] VITALS: BP 113/64
[2021-01-10] MEDS: LORazepam 0.5MG TABLET PO PRN ×4 (03:25→21:40)
[2021-01-10] MEDS: ASPIRIN 81 MG TABLET EC PO SCH (05:08)
[2021-01-10] MEDS: OXYcodone IR 5MG TABLET PO PRN ×2 (05:08→13:32)
[2021-01-10 05:26] LABS: BASOPHILS % (AUTO) 1 % (0-1); EOSINOPHILS % (AUTO) 1 % (1-7); LYMPHOCYTES % (AUTO) 24 % (22-44); MEAN CORPUSCULAR HEMOGLOBIN 28.3 pg (27.0-34.8); MEAN PLATELET VOLUME 7.7 fL (7.4-10.4); MONOCYTES % (AUTO) 9 % (2-9); NEUTROPHILS % (AUTO) 66 % (42-75); PLATELET COUNT 296 x10^3/uL (130-400); RED BLOOD COUNT 2.84 x10^6/uL (3.82-5.3); RED CELL DISTRIBUTION WIDTH 15.9 % (9.6-15.2)
[2021-01-10 05:28] LABS: MD NO
[2021-01-10 05:33] LABS: ANION GAP 3 mmol/L (5-15); CALCIUM 9.2 mg/dL (8.5-10.1); CHLORIDE 96 mmol/L (98-107); CREATININE 0.75 mg/dL (0.55-1.02)
[2021-01-10 07:40] VITALS: BP 112/73
[2021-01-10] MEDS: OXYcodone IR 5MG TABLET PO SCH ×3 (08:53→19:55)
[2021-01-10] MEDS: SPIRONOLACTONE 25 MG TABLET PO SCH (08:53)
[2021-01-10] MEDS: FUROSEMIDE 40 MG TABLET PO SCH ×2 (08:54→16:12)
[2021-01-10] MEDS: OMEPRAZOLE 20 MG CAPSULE.DR PO SCH (08:54)
[2021-01-10] MEDS: SENNA/DOCUSATE TABLET PO SCH (08:54)
[2021-01-10] MEDS: POTASSIUM CHLORIDE 20 MEQ TAB.ER.PRT PO SCH ×3 (08:55→21:40)
[2021-01-10] MEDS: FLUTICASONE/VILANTEROL 100-25MCG/INH INH SCH (08:56)
[2021-01-10] MEDS: ENOXAPARIN 30 MG/0.3 ML SQ SCH ×2 (08:59→21:00)
[2021-01-10 13:34] VITALS: BP 113/67
[2021-01-10 21:08] VITALS: BP 114/86
[2021-01-10] MEDS: ATORVASTATIN 40 MG TABLET PO SCH (21:40)
[2021-01-10] MEDS: ACETAMINOPHEN 325 MG TABLET PO PRN (21:41)
[2021-01-11] MEDS: TRAZODONE 150MG TABLET PO SCH ×2 (00:11→21:07)
[2021-01-11] MEDS: AMITRIPTYLINE 75 MG TABLET PO SCH ×2 (00:11→21:10)
[2021-01-11] MEDS: OXYcodone IR 5MG TABLET PO SCH ×3 (00:12→21:07)
[2021-01-11 04:51] LABS: BASOPHILS % (AUTO) 1 % (0-1); EOSINOPHILS % (AUTO) 1 % (1-7); LYMPHOCYTES % (AUTO) 21 % (22-44); MEAN CORPUSCULAR HEMOGLOBIN 27.9 pg (27.0-34.8); MEAN CORPUSCULAR HGB CONC 32.6 g/dL (32.4-35.8); MEAN PLATELET VOLUME 7.5 fL (7.4-10.4); MONOCYTES % (AUTO) 8 % (2-9); NEUTROPHILS % (AUTO) 70 % (42-75); PLATELET COUNT 299 x10^3/uL (130-400); RED BLOOD COUNT 2.85 x10^6/uL (3.82-5.3); RED CELL DISTRIBUTION WIDTH 16.2 % (9.6-15.2)
[2021-01-11 04:52] LABS: MD NO
[2021-01-11 05:04] LABS: ANION GAP 3 mmol/L (5-15); CALCIUM 8.8 mg/dL (8.5-10.1); CHLORIDE 95 mmol/L (98-107); CREATININE 0.74 mg/dL (0.55-1.02)
[2021-01-11] MEDS: ASPIRIN 81 MG TABLET EC PO SCH (05:59)
[2021-01-11] MEDS: LORazepam 0.5MG TABLET PO PRN ×3 (05:59→18:28)
[2021-01-11] MEDS: ACETAMINOPHEN 325 MG TABLET PO PRN ×3 (06:01→19:47)
[2021-01-11] MEDS: OXYcodone IR 5MG TABLET PO PRN ×3 (06:02→22:28)
[2021-01-11 06:46] VITALS: BP 117/87
[2021-01-11 06:56] VITALS: BP 113/71
[2021-01-11] MEDS: ENOXAPARIN 30 MG/0.3 ML SQ SCH ×2 (09:00→21:00)
[2021-01-11] MEDS: FLUTICASONE/VILANTEROL 100-25MCG/INH INH SCH (10:01)
[2021-01-11] MEDS: POTASSIUM CHLORIDE 20 MEQ TAB.ER.PRT PO SCH ×3 (10:15→21:08)
[2021-01-11] MEDS: OMEPRAZOLE 20 MG CAPSULE.DR PO SCH (10:15)
[2021-01-11] MEDS: SENNA/DOCUSATE TABLET PO SCH (10:16)
[2021-01-11] MEDS: SPIRONOLACTONE 25 MG TABLET PO SCH (10:16)
[2021-01-11] MEDS: FUROSEMIDE 40 MG TABLET PO SCH ×2 (10:37→16:46)
[2021-01-11] MEDS ORDERED: ONDA4TAB13 PO (10:46)
[2021-01-11] MEDS ORDERED: SENN-211 PO (10:46)
[2021-01-11] MEDS ORDERED: FURO20TA3 PO (10:46)
[2021-01-11] MEDS ORDERED: FURO40TA6 PO (10:46)
[2021-01-11] MEDS ORDERED: POLY17PO5 PO (10:46)
[2021-01-11 12:50] VITALS: BP 118/70
[2021-01-11] MEDS: ONDANSETRON 2MG/ML, 2ML IVPush PRN (19:47)
[2021-01-11 19:55] VITALS: BP 118/55
[2021-01-11] MEDS: ATORVASTATIN 40 MG TABLET PO SCH (21:11)
[2021-01-11] MEDS: ONDANSETRON ODT 4 MG PO PRN (22:28)
[2021-01-12] MEDS: ONDANSETRON 2MG/ML, 2ML IVPush PRN ×3 (00:06→21:14)
[2021-01-12 00:12] VITALS: BP 143/78
[2021-01-12] MEDS: OXYcodone IR 5MG TABLET PO PRN ×2 (02:43→12:57)
[2021-01-12] MEDS: ASPIRIN 81 MG TABLET EC PO SCH (04:20)
[2021-01-12] MEDS: FLUTICASONE/VILANTEROL 100-25MCG/INH INH SCH (07:09)
[2021-01-12 08:27] VITALS: BP 114/70
[2021-01-12] MEDS: OMEPRAZOLE 20 MG CAPSULE.DR PO SCH (09:25)
[2021-01-12] MEDS: POTASSIUM CHLORIDE 20 MEQ TAB.ER.PRT PO SCH ×3 (09:25→21:14)
[2021-01-12] MEDS: SENNA/DOCUSATE TABLET PO SCH (09:25)
[2021-01-12] MEDS: OXYcodone IR 5MG TABLET PO SCH ×3 (09:26→21:14)
[2021-01-12] MEDS: ENOXAPARIN 30 MG/0.3 ML SQ SCH ×2 (09:27→21:00)
[2021-01-12] MEDS: FUROSEMIDE 40 MG TABLET PO SCH ×2 (09:35→17:25)
[2021-01-12] MEDS: LORazepam 0.5MG TABLET PO PRN ×2 (09:57→17:25)
[2021-01-12] MEDS: SPIRONOLACTONE 25 MG TABLET PO SCH (09:57)
[2021-01-12] MEDS: ACETAMINOPHEN 325 MG TABLET PO PRN ×2 (09:58→17:33)
[2021-01-12 16:07] VITALS: BP 112/60
[2021-01-12 18:11] VITALS: BP 109/68
[2021-01-12] MEDS: ATORVASTATIN 40 MG TABLET PO SCH (21:14)
[2021-01-13 00:06] VITALS: BP 126/79
[2021-01-13] MEDS: ACETAMINOPHEN 325 MG TABLET PO PRN ×3 (00:13→16:51)
[2021-01-13] MEDS: OXYcodone IR 5MG TABLET PO PRN ×3 (00:14→12:56)
[2021-01-13] MEDS: LORazepam 0.5MG TABLET PO PRN ×2 (00:14→08:38)
[2021-01-13] MEDS: TRAZODONE 150MG TABLET PO SCH (00:15)
[2021-01-13 05:23] LABS: BASOPHILS % (AUTO) 0 % (0-1); EOSINOPHILS % (AUTO) 1 % (1-7); LYMPHOCYTES % (AUTO) 17 % (22-44); MEAN CORPUSCULAR HEMOGLOBIN 27.8 pg (27.0-34.8); MEAN CORPUSCULAR HGB CONC 32.7 g/dL (32.4-35.8); MEAN PLATELET VOLUME 7.7 fL (7.4-10.4); MONOCYTES % (AUTO) 6 % (2-9); NEUTROPHILS % (AUTO) 76 % (42-75); PLATELET COUNT 288 x10^3/uL (130-400); RED BLOOD COUNT 2.84 x10^6/uL (3.82-5.3); RED CELL DISTRIBUTION WIDTH 16.3 % (9.6-15.2)
[2021-01-13 05:25] LABS: MD NO
[2021-01-13 05:29] LABS: ANION GAP 5 mmol/L (5-15); CALCIUM 8.9 mg/dL (8.5-10.1); CHLORIDE 95 mmol/L (98-107); CREATININE 0.78 mg/dL (0.55-1.02)
[2021-01-13] MEDS: ASPIRIN 81 MG TABLET EC PO SCH (06:25)
[2021-01-13 06:48] VITALS: BP 110/72
[2021-01-13] MEDS: POTASSIUM CHLORIDE 20 MEQ TAB.ER.PRT PO SCH ×2 (08:37→16:50)
[2021-01-13] MEDS: OXYcodone IR 5MG TABLET PO SCH ×2 (08:38→16:51)
[2021-01-13] MEDS: FUROSEMIDE 40 MG TABLET PO SCH ×2 (08:39→16:51)
[2021-01-13] MEDS: OMEPRAZOLE 20 MG CAPSULE.DR PO SCH (08:39)
[2021-01-13] MEDS: SENNA/DOCUSATE TABLET PO SCH (08:39)
[2021-01-13] MEDS: SPIRONOLACTONE 25 MG TABLET PO SCH (08:40)
[2021-01-13] MEDS: FLUTICASONE/VILANTEROL 100-25MCG/INH INH SCH (08:40)
[2021-01-13] MEDS: ENOXAPARIN 30 MG/0.3 ML SQ SCH (08:41)
[2021-01-13 13:47] VITALS: BP 112/72
[2021-01-13] MEDS: ONDANSETRON 2MG/ML, 2ML IVPush PRN (14:52)
[2021-01-14] MEDS ORDERED: FERROUS SULFATE 325 MG TABLET PO SCH (08:00)
== END 2021-01-13 19:54 | disposition short-term general hospital (02) | DRG 306 ==
LOC: ED 10:43 → EDIP 12:49 → 5SO 13:28
PROVIDERS: ADMIT Family Medicine; ATTEND Internal Medicine
DX: T82.01XA Breakdown (mechanical) of heart valve prosthesis, initial encounter (principal); J96.21 Acute and chronic respiratory failure with hypoxia; J96.22 Acute and chronic respiratory failure with hypercapnia; E87.1 Hypo-osmolality and hyponatremia; F11.20 Opioid dependence, uncomplicated; I34.0 Nonrheumatic mitral (valve) insufficiency; E87.6 Hypokalemia; J44.9 Chronic obstructive pulmonary disease, unspecified; Z68.37 Body mass index [BMI] 37.0-37.9, adult; D64.9 Anemia, unspecified; E66.01 Morbid (severe) obesity due to excess calories; E78.5 Hyperlipidemia, unspecified; F32.9 Major depressive disorder, single episode, unspecified; F41.1 Generalized anxiety disorder; G89.29 Other chronic pain; I11.0 Hypertensive heart disease with heart failure; K21.9 Gastro-esophageal reflux disease without esophagitis; M79.7 Fibromyalgia; Z79.82 Long term (current) use of aspirin; Z79.899 Other long term (current) drug therapy; Z87.891 Personal history of nicotine dependence; Z95.3 Presence of xenogenic heart valve; Z95.2 Presence of prosthetic heart valve; I50.9 Heart failure, unspecified
CPT/HCPCS: 36415; 71045; 80048; 80053; 80061; 83036; 83735; 83880; 84484; 85025; 87635; 93005; 93970; 94640; G0378; J1170; J1650; J1940; J2405; J3480; Q0162; J7040